=== PATIENT | male | born 1990 | race Caucasian/White ===

== ENCOUNTER 2024-09-06 13:24 | Emergency (ER) | payer MEDICAID, OTHER ==
[~2024-09-06] VITALS: Ht 175.3 cm; Wt 62.1 kg
[2024-09-06 13:41] VITALS: BP 139/81; TEMP 98.4
[2024-09-06] MEDS ORDERED: PENICILLIN G BENZATHINE 2.4 MMU/4 ML ML IM ONE ×2 (14:30)
[2024-09-06] MEDS: PENICILLIN G BENZATHINE 2.4 MMU/4 ML ML IM ONE (14:34)
[2024-09-06 15:10] VITALS: O2SAT 99
[2024-09-08 06:07] LABS: RAPID PLASMA REAGIN QUAL. Reactive (Non Reactive); RPR, QUANT 1:2 titer (NonRea<1:1)
== END 2024-09-06 15:18 | disposition home or self-care (01) ==
LOC: ER 13:52
DX: Z20.2 Contact with and (suspected) exposure to infections with a predominantly sexual mode of transmission (principal); Z13.89 Encounter for screening for other disorder
CPT/HCPCS: 99283; 86593; 86592; 96372; 36415; J0558